=== PATIENT | male | born 1950 | race Caucasian/White ===

== ENCOUNTER 2016-09-23 17:13 | Emergency (ER) | payer OTHER ==
[~2016-09-23] VITALS: Ht 170.2 cm; Wt 112.8 kg
[~2016-09-23 17:13] MED LIST: BENAZEPRIL HCL10 MG PO; BENAZEPRIL HCL20 MG PO; BENAZEPRIL HCL40 MG PO; CARDIZEM CD,CA180 MG PO; CARDIZEM CD120 MG PO; CARDURA4 MG PO; CARDURA8 MG PO; CELEBREX200 MG PO; ELIQUIS5 MG PO; EPLERENONE50 MG PO; Ecotrin PO; FEOSOL325 MG PO; FUROSEMIDE40 MG PO; GLUCOPHAGE1000 MG PO; GLUCOPHAGE850 MG PO; KLOR-CON M2020 MEQ PO; KLOR-CON20 MEQ PO; LIPITOR40 MG PO; LUMIGAN 0.50 DROP/2. RIGHT EYE; LUMIGAN 0.50 DROP/22 BOTH EYES; MARTINIC1 EACH PO; METOPROLOL TAR100 MG PO; NAPROSYN500 MG PO; PREDNISONE20 MG PO; Senokot S,Pericolace PO; TOPROL XL100 MG PO; TRAMADOL HCL50 MG PO; ULTRAM50 MG PO; Vicodin,Norco 5/325 PO; ZYLOPRIM100 MG
[2016-09-23 18:34] LABS: ADD MIUA? YES; BILIRUBIN NEGATIVE; BLOOD LARGE; GLUCOSE (STRIP) NEGATIVE; KETONES NEGATIVE; LEUKOCYTES NEGATIVE; NITRITE NEGATIVE; PROTEIN (STRIP) 100; SPECIFIC GRAVITY 1.014 (1.000-1.030)
[2016-09-23 18:40] LABS: COLOR RED ((YELLOW))
[2016-09-23 19:23] LABS: MCH 31.9 PG (29.0-34.0); MCHC 33.9 G/DL (30.0-36.0); MCV 93.8 FL (86-99); MEAN PLAT.VOLUME 10.7 uM^3 (9.0-12.4); PLATELET COUNT 164 K/uL (156-360); RBC DIS.WIDTH-CV 14.5 % (11.8-14.6); RBC DIS.WIDTH-SD 49.5 % (39-53); RED BLOOD COUNT 4.05 M/uL (4.00-5.50); WHITE BLOOD COUNT 7.2 K/uL (4.1-10.2)
[2016-09-23 19:26] LABS: CHLORIDE 99 mEq/L (99-109); SODIUM 141 mEq/L (136-147)
[2016-09-23 19:27] LABS: BACTERIA NONE SEEN /HPF; CASTS NONE SEEN /LPF; CRYSTALS NONE SEEN; EPITHELIAL CELLS NONE SEEN /HPF; MUCUS NONE SEEN /LPF; RED BLOOD CELLS TNTC /HPF (0-5); UCUL ADDED? NO; WHITE BLOOD CELLS 0-5 /HPF (0-5)
[2016-09-23 19:28] LABS: GLUCOSE 176 mg/dL (70-99)
[2016-09-23 19:30] LABS: ANION GAP 13 MEQ/L (2-14); TOTAL BILIRUBIN 1.5 mg/dL (0.0-1.0)
[2016-09-23 19:32] LABS: ALKALINE PHOSPHATASE 45 IU/L (3-129); GFR ESTIMATE (CALCULATED) 54 mL/min/
[2016-09-23 19:33] LABS: UREA NITROGEN (BUN) 19 mg/dL (9-23)
[2016-09-23] MEDS ORDERED: FLOMAX0.4 MG PO (20:16)
[2016-09-23 21:00] VITALS: BP 139/85
== END 2016-09-23 21:58 | disposition home or self-care (01) ==
LOC: EME 17:13
PROVIDERS: Nurse Practitioner Family
DX: N20.0 Calculus of kidney (principal); R31.9 Hematuria, unspecified; Z87.442 Personal history of urinary calculi; Z79.01 Long term (current) use of anticoagulants; I25.10 Atherosclerotic heart disease of native coronary artery without angina pectoris; K57.30 Diverticulosis of large intestine without perforation or abscess without bleeding; N40.0 Benign prostatic hyperplasia without lower urinary tract symptoms; I10 Essential (primary) hypertension; E78.5 Hyperlipidemia, unspecified; E11.9 Type 2 diabetes mellitus without complications
CPT/HCPCS: 74176; 80053; 81003; 85027

== ENCOUNTER 2016-12-30 14:02 | Emergency (ER) | payer OTHER ==
[~2016-12-30] VITALS: Ht 170.2 cm; Wt 115.4 kg
[~2016-12-30 14:02] MED LIST changes: +FLOMAX0.4 MG PO
[2016-12-30 14:58] LABS: HEMATOCRIT 36.8 % (38.0-50.0); MCH 31.1 PG (29.0-34.0); MCHC 33.4 G/DL (30.0-36.0); MCV 93.2 FL (86-99); MEAN PLAT.VOLUME 11.2 uM^3 (9.0-12.4); PLATELET COUNT 165 K/uL (156-360); RBC DIS.WIDTH-CV 14.3 % (11.8-14.6); RBC DIS.WIDTH-SD 48.9 % (39-53); RED BLOOD COUNT 3.95 M/uL (4.00-5.50); WHITE BLOOD COUNT 8.4 K/uL (4.1-10.2)
[2016-12-30 15:08] LABS: CHLORIDE 99 mEq/L (99-109); POTASSIUM 4.1 mEq/L (3.7-5.4); SODIUM 141 mEq/L (136-147)
[2016-12-30 15:09] LABS: GLUCOSE 127 mg/dL (70-99)
[2016-12-30 15:11] LABS: ANION GAP 12 MEQ/L (2-14)
[2016-12-30 15:13] LABS: GFR ESTIMATE (CALCULATED) 50 mL/min/
[2016-12-30 15:14] LABS: UREA NITROGEN (BUN) 16 mg/dL (9-23)
[2016-12-30 15:21] LABS: TROP-I INTERPRETATION NEGATIVE; TROPONIN-I < 0.01 ng/mL (0.0-0.30)
[2016-12-30] MEDS ORDERED: ZITHROMAX Z-PA250 MG PO (18:34)
[2016-12-30 19:17] VITALS: BP 147/101
== END 2016-12-30 19:19 | disposition home or self-care (01) ==
LOC: EME 14:02
DX: I11.0 Hypertensive heart disease with heart failure (principal); I50.9 Heart failure, unspecified; J20.9 Acute bronchitis, unspecified; K21.9 Gastro-esophageal reflux disease without esophagitis; E78.5 Hyperlipidemia, unspecified; E11.9 Type 2 diabetes mellitus without complications; Z79.84 Long term (current) use of oral hypoglycemic drugs; Z79.01 Long term (current) use of anticoagulants; Z87.442 Personal history of urinary calculi
CPT/HCPCS: 71020; 71275; 80048; 83880; 84484; 85027; 93005; 99281; 99285; J1940; J7030

== ENCOUNTER 2017-06-02 00:21 | Emergency (ER) | payer OTHER ==
[~2017-06-02] VITALS: Ht 170.2 cm; Wt 116.0 kg
[~2017-06-02 00:21] MED LIST changes: +ZITHROMAX Z-PA250 MG PO
[2017-06-02 01:10] LABS: HEMATOCRIT 39.6 % (38.0-50.0); MCH 32.4 PG (29.0-34.0); MCHC 34.3 G/DL (30.0-36.0); MCV 94.3 FL (86-99); MEAN PLAT.VOLUME 11.5 uM^3 (9.0-12.4); PLATELET COUNT 169 K/uL (156-360); RBC DIS.WIDTH-CV 13.9 % (11.8-14.6); RBC DIS.WIDTH-SD 47.7 % (39-53)
[2017-06-02 01:20] LABS: CHLORIDE 97 mEq/L (99-109); POTASSIUM 3.7 mEq/L (3.7-5.4); SODIUM 144 mEq/L (136-147)
[2017-06-02 01:21] LABS: GLUCOSE 112 mg/dL (70-99)
[2017-06-02 01:23] LABS: ANION GAP 15 MEQ/L (2-14)
[2017-06-02 01:25] LABS: GFR ESTIMATE (CALCULATED) 40 mL/min/ (58.99-99999)
[2017-06-02 01:26] LABS: UREA NITROGEN (BUN) 22 mg/dL (9-23)
[2017-06-02 01:34] LABS: TROP-I INTERPRETATION NEGATIVE; TROPONIN-I < 0.01 ng/mL (0.0-0.30)
[2017-06-02 05:01] LABS: TROP-I INTERPRETATION NEGATIVE; TROPONIN-I < 0.01 ng/mL (0.0-0.30)
[2017-06-02] MEDS ORDERED: ZITHROMAX Z-PA250 MG PO (05:23)
[2017-06-02] MEDS ORDERED: PROVENTIL HFA6.7 GM IH (05:23)
[2017-06-02 06:16] VITALS: BP 136/86
== END 2017-06-02 06:17 | disposition home or self-care (01) ==
LOC: EME 00:21
PROVIDERS: Emergency Medicine
DX: J20.9 Acute bronchitis, unspecified (principal); N28.9 Disorder of kidney and ureter, unspecified; I48.91 Unspecified atrial fibrillation; Z86.79 Personal history of other diseases of the circulatory system; J02.9 Acute pharyngitis, unspecified; I10 Essential (primary) hypertension; E78.5 Hyperlipidemia, unspecified; E11.9 Type 2 diabetes mellitus without complications; Z79.84 Long term (current) use of oral hypoglycemic drugs; Z87.442 Personal history of urinary calculi
CPT/HCPCS: 71020; 80048; 83880; 84484; 85027; 87651 90; 93005; 94640; 99281; 99285

== ENCOUNTER 2017-09-20 20:20 | Emergency (ER) | payer OTHER ==
[~2017-09-20] VITALS: Ht 170.2 cm; Wt 113.6 kg
[~2017-09-20 20:20] MED LIST changes: +PROVENTIL HFA6.7 GM IH
[2017-09-20] MEDS ORDERED: CHERATUSSIN AC473 ML PO (23:35)
[2017-09-20] MEDS ORDERED: PREDNISONE10 M1 PO (23:35)
[2017-09-20] MEDS ORDERED: TESSALON PERLE100 MG PO (23:35)
[2017-09-20 23:49] VITALS: BP 152/93
== END 2017-09-20 23:51 | disposition home or self-care (01) ==
LOC: EME 20:20
DX: J20.9 Acute bronchitis, unspecified (principal); E11.9 Type 2 diabetes mellitus without complications; I10 Essential (primary) hypertension; K21.9 Gastro-esophageal reflux disease without esophagitis; E78.5 Hyperlipidemia, unspecified; M10.9 Gout, unspecified; F32.9 Major depressive disorder, single episode, unspecified; Z79.84 Long term (current) use of oral hypoglycemic drugs; Z87.442 Personal history of urinary calculi; Z86.79 Personal history of other diseases of the circulatory system; Z85.9 Personal history of malignant neoplasm, unspecified
CPT/HCPCS: 71046; 99281; 99283

== ENCOUNTER 2017-11-02 06:43 | Emergency (ER) | payer OTHER ==
[~2017-11-02] VITALS: Ht 170.2 cm; Wt 112.9 kg
[~2017-11-02 06:43] MED LIST changes: +CHERATUSSIN AC473 ML PO; +PREDNISONE10 M1 PO; +TESSALON PERLE100 MG PO
[2017-11-02 07:35] LABS: BASOPHIL (%) 0.7 % (0-1); BASOPHIL COUNT 0.1 K/uL (0-0.1); EOSINOPHIL COUNT 0.3 K/uL (0-0.3); HEMATOCRIT 40.3 % (38.0-50.0); IMMATURE GRANULOCYTE (%) 0.3 % (0.0-0.7); LYMPHOCYTE (%) 18.1 % (15-42); LYMPHOCYTE COUNT 1.8 K/uL (1.0-2.8); MCH 32.3 PG (29.0-34.0); MCHC 34.7 G/DL (30.0-36.0); MCV 93.1 FL (86-99); MONOCYTE (%) 7.1 % (3-12); MONOCYTE COUNT 0.7 K/uL (0-0.8); NEUTROPHIL (%) 70.8 % (45-76); PLATELET COUNT 161 K/uL (156-360); RBC DIS.WIDTH-CV 14.2 % (11.8-14.6); RBC DIS.WIDTH-SD 48.8 % (39-53); RED BLOOD COUNT 4.33 M/uL (4.00-5.50); WHITE BLOOD COUNT 9.9 K/uL (4.1-10.2)
[2017-11-02 07:52] LABS: CHLORIDE 99 mEq/L (99-109); POTASSIUM 4.3 mEq/L (3.7-5.4); SODIUM 141 mEq/L (136-147)
[2017-11-02 07:54] LABS: GLUCOSE 152 mg/dL (70-99)
[2017-11-02 07:58] LABS: CREATININE 1.6 mg/dL (0.6-1.3); GFR ESTIMATE (CALCULATED) 46 mL/min/ (58.99-99999)
[2017-11-02 07:59] LABS: UREA NITROGEN (BUN) 20 mg/dL (9-23)
[2017-11-02 08:12] LABS: APPEARANCE CLEAR ((CLEAR)); BILIRUBIN NEGATIVE; BLOOD LARGE; COLOR YELLOW ((YELLOW)); GLUCOSE (STRIP) NEGATIVE; KETONES NEGATIVE; LEUKOCYTES NEGATIVE; NITRITE NEGATIVE; PROTEIN (STRIP) 30; SPECIFIC GRAVITY 1.014 (1.000-1.030)
[2017-11-02 08:20] LABS: BACTERIA NONE SEEN /HPF; EPITHELIAL CELLS RARE /HPF; MUCUS TRACE /LPF; RED BLOOD CELLS TNTC /HPF (0-5); UCUL ADDED? YES; WHITE BLOOD CELLS 0-5 /HPF (0-5)
[2017-11-02] MEDS ORDERED: FLOMAX0.4 MG PO (09:39)
[2017-11-02] MEDS ORDERED: PERCOCET 5/31 TABLET PO (09:39)
[2017-11-02] MEDS ORDERED: ZOFRAN ODT4 MG PO (09:39)
[2017-11-02 10:35] VITALS: BP 146/89
== END 2017-11-02 10:38 | disposition home or self-care (01) ==
LOC: EME 06:43
PROVIDERS: Emergency Medicine
DX: N20.0 Calculus of kidney (principal); Z87.442 Personal history of urinary calculi; I11.0 Hypertensive heart disease with heart failure; I50.9 Heart failure, unspecified; K21.9 Gastro-esophageal reflux disease without esophagitis; E78.5 Hyperlipidemia, unspecified; E11.9 Type 2 diabetes mellitus without complications; Z79.84 Long term (current) use of oral hypoglycemic drugs; F32.9 Major depressive disorder, single episode, unspecified
CPT/HCPCS: 74176; 80048; 81003; 85025; 87086; 99281; 99285; J1885; J2405; J7030

== ENCOUNTER 2017-11-10 13:49 | Inpatient (IN) | payer OTHER ==
[~2017-11-10] VITALS: Ht 170.2 cm; Wt 117.1 kg
[~2017-11-10 13:49] MED LIST changes: +BACTRIM,SEPT1 TABLET PO; +GLUCOTROL5 MG PO; +PERCOCET 5/31 TABLET PO; +ZOFRAN ODT4 MG PO
[2017-11-10 14:40] VITALS: BP 142/90
[2017-11-10 23:30] VITALS: BP 143/95
[2017-11-11 05:35] LABS: HEMATOCRIT 32.8 % (38.0-50.0); MCH 31.1 PG (29.0-34.0); MCHC 33.2 G/DL (30.0-36.0); MCV 93.7 FL (86-99); PLATELET COUNT 167 K/uL (156-360); RBC DIS.WIDTH-CV 13.5 % (11.8-14.6); RBC DIS.WIDTH-SD 46.5 % (39-53); WHITE BLOOD COUNT 11.6 K/uL (4.1-10.2)
[2017-11-11 05:40] VITALS: BP 144/69
[2017-11-11 05:44] LABS: HEMOGLOBIN 10.9 G/DL (12.5-16.6)
[2017-11-11 05:53] LABS: ALBUMIN 3.3 G/DL (3.2-4.8); ALKALINE PHOSPHATASE 32 IU/L (3-129); ALT (GPT) 10 IU/L (3-49); AST (GOT) 12 IU/L (2-34); CHLORIDE 95 MEQ/L (99-109); CREATININE 1.7 MG/DL (0.6-1.3); GFR ESTIMATE (CALCULATED) 43 mL/min/ (58.99-99999); POTASSIUM 3.8 MEQ/L (3.7-5.4); SODIUM 138 MEQ/L (136-147); TOTAL BILIRUBIN 1.4 MG/DL (0.0-1.0); TOTAL PROTEIN 6.2 G/DL (6.4-8.3); UREA NITROGEN (BUN) 21 mg/dL (9-23)
[2017-11-11 05:58] LABS: GLUCOSE 161 mg/dL (70-99)
[2017-11-11 07:18] VITALS: BP 137/83
[2017-11-11 12:11] VITALS: BP 123/74
[2017-11-11 13:50] LABS: APPEARANCE TURBID ((CLEAR)); BLOOD LARGE; COLOR BLOODY ((YELLOW)); GLUCOSE (STRIP) NEGATIVE; KETONES NEGATIVE; PH, URINE 6.5 (5-8); PROTEIN (STRIP) 300
[2017-11-11 14:12] LABS: RED BLOOD CELLS TNTC /HPF (0-5); UCUL ADDED? YES
[2017-11-11 15:50] VITALS: BP 112/59
[2017-11-11 19:00] VITALS: BP 114/71
[2017-11-11 22:45] VITALS: BP 133/67
[2017-11-12 04:00] VITALS: BP 133/66
[2017-11-12 05:19] LABS: BASOPHIL (%) 0.3 % (0-1); EOSINOPHIL COUNT 0.2 K/uL (0-0.3); HEMATOCRIT 26.4 % (38.0-50.0); IMMATURE GRANULOCYTE (%) 0.2 % (0.0-0.7); LYMPHOCYTE (%) 15.5 % (15-42); LYMPHOCYTE COUNT 1.4 K/uL (1.0-2.8); MCH 32.1 PG (29.0-34.0); MCHC 34.1 G/DL (30.0-36.0); MCV 94.3 FL (86-99); MONOCYTE (%) 9.5 % (3-12); MONOCYTE COUNT 0.9 K/uL (0-0.8); NEUTROPHIL (%) 72.5 % (45-76); NEUTROPHIL COUNT 6.6 K/uL (1.8-6.4); PLATELET COUNT 149 K/uL (156-360); RBC DIS.WIDTH-CV 13.6 % (11.8-14.6); RBC DIS.WIDTH-SD 47.1 % (39-53); WHITE BLOOD COUNT 9.1 K/uL (4.1-10.2)
[2017-11-12 06:02] LABS: CHLORIDE 98 MEQ/L (99-109); CREATININE 1.9 MG/DL (0.6-1.3); GFR ESTIMATE (CALCULATED) 38 mL/min/ (58.99-99999); POTASSIUM 3.4 MEQ/L (3.7-5.4); SODIUM 137 MEQ/L (136-147); UREA NITROGEN (BUN) 22 mg/dL (9-23)
[2017-11-12 06:14] LABS: GLUCOSE 106 mg/dL (70-99)
[2017-11-12 08:27] VITALS: BP 136/78
[2017-11-12 11:27] VITALS: BP 136/78
[2017-11-12 15:28] VITALS: BP 118/69
[2017-11-12 18:05] LABS: HEMATOCRIT 27.1 % (38.0-50.0); HEMOGLOBIN 9.2 G/DL (12.5-16.6); MCV 94.4 FL (86-99)
[2017-11-12 19:00] VITALS: BP 112/66
[2017-11-12 23:00] VITALS: BP 125/82
[2017-11-13 04:30] VITALS: BP 127/84
[2017-11-13 05:16] LABS: BASOPHIL (%) 0.4 % (0-1); EOSINOPHIL (%) 3.2 % (0-5); EOSINOPHIL COUNT 0.3 K/uL (0-0.3); HEMATOCRIT 25.8 % (38.0-50.0); HEMOGLOBIN 8.6 G/DL (12.5-16.6); IMMATURE GRANULOCYTE (%) 0.4 % (0.0-0.7); LYMPHOCYTE (%) 14.2 % (15-42); LYMPHOCYTE COUNT 1.3 K/uL (1.0-2.8); MCH 31.4 PG (29.0-34.0); MCHC 33.3 G/DL (30.0-36.0); MCV 94.2 FL (86-99); MONOCYTE (%) 9.1 % (3-12); MONOCYTE COUNT 0.9 K/uL (0-0.8); NEUTROPHIL (%) 72.7 % (45-76); NEUTROPHIL COUNT 6.8 K/uL (1.8-6.4); PLATELET COUNT 168 K/uL (156-360); RBC DIS.WIDTH-CV 13.6 % (11.8-14.6); RBC DIS.WIDTH-SD 46.6 % (39-53); RED BLOOD COUNT 2.74 M/uL (4.00-5.50); WHITE BLOOD COUNT 9.4 K/uL (4.1-10.2)
[2017-11-13 05:50] LABS: CHLORIDE 98 MEQ/L (99-109); GFR ESTIMATE (CALCULATED) 36 mL/min/ (58.99-99999); GLUCOSE 110 mg/dL (70-99); POTASSIUM 3.8 MEQ/L (3.7-5.4); SODIUM 137 MEQ/L (136-147); UREA NITROGEN (BUN) 25 mg/dL (9-23)
[2017-11-13 07:23] VITALS: BP 132/90
[2017-11-13 11:26] VITALS: BP 107/68
[2017-11-13 17:12] VITALS: BP 102/60
[2017-11-13 19:00] VITALS: BP 118/72
[2017-11-13 22:30] VITALS: BP 112/74
[2017-11-14 04:30] VITALS: BP 125/81
[2017-11-14 05:58] LABS: BASOPHIL (%) 0.5 % (0-1); EOSINOPHIL (%) 3.5 % (0-5); EOSINOPHIL COUNT 0.3 K/uL (0-0.3); HEMATOCRIT 26.3 % (38.0-50.0); IMMATURE GRANULOCYTE (%) 0.4 % (0.0-0.7); LYMPHOCYTE (%) 13.7 % (15-42); LYMPHOCYTE COUNT 1.1 K/uL (1.0-2.8); MCH 31.8 PG (29.0-34.0); MCHC 34.2 G/DL (30.0-36.0); MCV 92.9 FL (86-99); MONOCYTE (%) 9.6 % (3-12); MONOCYTE COUNT 0.8 K/uL (0-0.8); NEUTROPHIL (%) 72.3 % (45-76); PLATELET COUNT 184 K/uL (156-360); RBC DIS.WIDTH-CV 13.4 % (11.8-14.6); RBC DIS.WIDTH-SD 45.8 % (39-53); RED BLOOD COUNT 2.83 M/uL (4.00-5.50); WHITE BLOOD COUNT 8.3 K/uL (4.1-10.2)
[2017-11-14 06:16] LABS: CHLORIDE 101 MEQ/L (99-109); CREATININE 1.7 MG/DL (0.6-1.3); GFR ESTIMATE (CALCULATED) 43 mL/min/ (58.99-99999); GLUCOSE 107 mg/dL (70-99); POTASSIUM 4.2 MEQ/L (3.7-5.4); SODIUM 139 MEQ/L (136-147); UREA NITROGEN (BUN) 24 mg/dL (9-23)
[2017-11-14 07:14] VITALS: BP 136/92
[2017-11-14 11:52] VITALS: BP 140/85
[2017-11-14 15:16] VITALS: BP 131/76
[2017-11-14 20:39] VITALS: BP 128/73
[2017-11-14 23:40] VITALS: BP 132/76
[2017-11-15 05:14] LABS: BASOPHIL (%) 0.7 % (0-1); BASOPHIL COUNT 0.1 K/uL (0-0.1); EOSINOPHIL (%) 5.3 % (0-5); EOSINOPHIL COUNT 0.4 K/uL (0-0.3); HEMATOCRIT 27.7 % (38.0-50.0); HEMOGLOBIN 9.3 G/DL (12.5-16.6); IMMATURE GRANULOCYTE (%) 0.2 % (0.0-0.7); LYMPHOCYTE (%) 21.8 % (15-42); LYMPHOCYTE COUNT 1.8 K/uL (1.0-2.8); MCH 31.4 PG (29.0-34.0); MCHC 33.6 G/DL (30.0-36.0); MCV 93.6 FL (86-99); MONOCYTE (%) 9.5 % (3-12); MONOCYTE COUNT 0.8 K/uL (0-0.8); NEUTROPHIL (%) 62.5 % (45-76); NEUTROPHIL COUNT 5.1 K/uL (1.8-6.4); PLATELET COUNT 211 K/uL (156-360); RBC DIS.WIDTH-CV 13.4 % (11.8-14.6); RBC DIS.WIDTH-SD 45.7 % (39-53); RED BLOOD COUNT 2.96 M/uL (4.00-5.50); WHITE BLOOD COUNT 8.2 K/uL (4.1-10.2)
[2017-11-15 05:46] LABS: CHLORIDE 100 MEQ/L (99-109); CREATININE 1.6 MG/DL (0.6-1.3); GFR ESTIMATE (CALCULATED) 46 mL/min/ (58.99-99999); GLUCOSE 100 mg/dL (70-99); POTASSIUM 4.2 MEQ/L (3.7-5.4); SODIUM 141 MEQ/L (136-147); UREA NITROGEN (BUN) 22 mg/dL (9-23)
[2017-11-15 05:56] VITALS: BP 143/90
[2017-11-15 07:20] VITALS: BP 148/91
[2017-11-15 10:55] LABS: SITE RR
[2017-11-15 10:56] LABS: COMMENTS - BLOOD GASES A+C+; PCO2 36 mm Hg (35-45); PO2 71 mm Hg (80-100)
[2017-11-15 10:57] LABS: BASE EXCESS 4.8 mEq/L (-3 to +3); BICARBONATE 28.1 mEq/L (22-26); CARBOXY HGB 1.7 % (0-5); O2 SATURATION (CALCULATED) 94 % (95-99)
[2017-11-15 11:03] LABS: HEMOGLOBIN A1c (GLYCOHEMOGLOB) 6.4 % (Below 5.7)
[2017-11-15 11:40] VITALS: BP 99/63
[2017-11-15 16:38] VITALS: BP 123/74
[2017-11-15 19:44] VITALS: BP 92/53
[2017-11-16 00:47] VITALS: BP 144/80
[2017-11-16 04:54] VITALS: BP 134/86
[2017-11-16 07:10] VITALS: BP 155/92
[2017-11-16 09:54] LABS: HEMATOCRIT 29.7 % (38.0-50.0); MCH 31.5 PG (29.0-34.0); MCHC 33.7 G/DL (30.0-36.0); MCV 93.7 FL (86-99); PLATELET COUNT 226 K/uL (156-360); RBC DIS.WIDTH-CV 13.4 % (11.8-14.6); RBC DIS.WIDTH-SD 46.6 % (39-53); RED BLOOD COUNT 3.17 M/uL (4.00-5.50); WHITE BLOOD COUNT 7.2 K/uL (4.1-10.2)
[2017-11-16 10:26] LABS: CHLORIDE 99 MEQ/L (99-109); CREATININE 1.6 MG/DL (0.6-1.3); GFR ESTIMATE (CALCULATED) 46 mL/min/ (58.99-99999); POTASSIUM 4.2 MEQ/L (3.7-5.4); SODIUM 137 MEQ/L (136-147); UREA NITROGEN (BUN) 25 mg/dL (9-23)
[2017-11-16 10:27] LABS: GLUCOSE 180 mg/dL (70-99)
[2017-11-16] MEDS ORDERED: ELIQUIS5 MG PO (10:53)
[2017-11-16] MEDS ORDERED: CARVEDILOL12.5 MG PO (10:53)
[2017-11-16] MEDS ORDERED: DIGOXIN250 MCG PO (10:53)
[2017-11-16] MEDS ORDERED: LISINOPRIL10 MG PO (10:53)
[2017-11-16 11:18] VITALS: BP 130/81
== END 2017-11-16 17:33 | disposition home health service (06) | DRG 315 ==
LOC: SDC 13:49 → ENRESERV 22:00 → 2SOUTH 22:02 → 4EAST 22:02 → ENRESERV 22:18 → 4EAST 23:01
PROVIDERS: Hospitalist; Internal Medicine; Student in an Organized Health Care Education/Training Program; Urology
DX: I97.89 Other postprocedural complications and disorders of the circulatory system, not elsewhere classified (principal); Y83.8 Other surgical procedures as the cause of abnormal reaction of the patient, or of later complication, without mention of misadventure at the time of the procedure; I48.2 Chronic atrial fibrillation; N99.89 Other postprocedural complications and disorders of genitourinary system; N40.1 Benign prostatic hyperplasia with lower urinary tract symptoms; R33.8 Other retention of urine; R31.0 Gross hematuria; D62 Acute posthemorrhagic anemia; N17.9 Acute kidney failure, unspecified; N13.2 Hydronephrosis with renal and ureteral calculous obstruction; N47.1 Phimosis; I10 Essential (primary) hypertension; I42.0 Dilated cardiomyopathy; I27.20 Pulmonary hypertension, unspecified; I36.1 Nonrheumatic tricuspid (valve) insufficiency; M10.9 Gout, unspecified; E11.9 Type 2 diabetes mellitus without complications; K21.9 Gastro-esophageal reflux disease without esophagitis; E78.5 Hyperlipidemia, unspecified; E78.00 Pure hypercholesterolemia, unspecified; Z96.652 Presence of left artificial knee joint; Z88.2 Allergy status to sulfonamides; Z79.01 Long term (current) use of anticoagulants; Z87.891 Personal history of nicotine dependence
CPT/HCPCS: 36415; 36600; 74420; 80048; 80053; 81003; 82803; 82948; 83036; 85014; 85018; 85025; 85027; 87086; 93005; 93306; 99202; C1758; C1769; C2625; J0690; J1170; J1815; J2405; J3010; J7030; J7040; J7120

== ENCOUNTER 2017-11-18 14:48 | Emergency (ER) | payer OTHER ==
[~2017-11-18] VITALS: Ht 170.2 cm; Wt 111.3 kg
[~2017-11-18 14:48] MED LIST changes: +CARVEDILOL12.5 MG PO; +DIGOXIN250 MCG PO; +LISINOPRIL10 MG PO
[2017-11-18 15:25] LABS: HEMATOCRIT 30.7 % (38.0-50.0); HEMOGLOBIN 10.6 G/DL (12.5-16.6); MCH 32.3 PG (29.0-34.0); MCHC 34.5 G/DL (30.0-36.0); MCV 93.6 FL (86-99); RBC DIS.WIDTH-CV 13.4 % (11.8-14.6); RBC DIS.WIDTH-SD 46.2 % (39-53); RED BLOOD COUNT 3.28 M/uL (4.00-5.50); WHITE BLOOD COUNT 7.9 K/uL (4.1-10.2)
[2017-11-18 15:31] LABS: PLATELET COUNT 298 K/uL (156-360)
[2017-11-18 15:33] LABS: ALBUMIN 3.4 g/dL (3.2-4.8); CHLORIDE 101 mEq/L (99-109); POTASSIUM 4.2 mEq/L (3.7-5.4); SODIUM 137 mEq/L (136-147)
[2017-11-18 15:36] LABS: GLUCOSE 146 mg/dL (70-99)
[2017-11-18 15:38] LABS: TOTAL BILIRUBIN 0.6 mg/dL (0.0-1.0)
[2017-11-18 15:39] LABS: ALKALINE PHOSPHATASE 68 IU/L (3-129); CREATININE 1.9 mg/dL (0.6-1.3); GFR ESTIMATE (CALCULATED) 38 mL/min/ (58.99-99999)
[2017-11-18 15:40] LABS: UREA NITROGEN (BUN) 24 mg/dL (9-23)
[2017-11-18 15:41] LABS: AST (GOT) 41 IU/L (2-34)
[2017-11-18 15:42] LABS: ALT (GPT) 43 IU/L (3-49)
[2017-11-18 15:42] LABS: APPEARANCE CLOUDY ((CLEAR)); BILIRUBIN NEGATIVE; BLOOD LARGE; COLOR YELLOW ((YELLOW)); GLUCOSE (STRIP) NEGATIVE; KETONES NEGATIVE; LEUKOCYTES LARGE; NITRITE NEGATIVE; PROTEIN (STRIP) 100; SPECIFIC GRAVITY 1.013 (1.000-1.030)
[2017-11-18 16:01] LABS: EPITHELIAL CELLS 1+ /HPF; MUCUS NONE SEEN /LPF; RED BLOOD CELLS 20-30 /HPF (0-5); WHITE BLOOD CELLS 40-50 /HPF (0-5)
[2017-11-18 16:02] LABS: BACTERIA RARE /HPF; UCUL ADDED? YES
[2017-11-18 18:31] VITALS: BP 128/76
== END 2017-11-18 18:32 | disposition home or self-care (01) ==
LOC: EME 14:48
PROVIDERS: Physician Assistant Medical
DX: R31.9 Hematuria, unspecified (principal); K21.9 Gastro-esophageal reflux disease without esophagitis; I11.0 Hypertensive heart disease with heart failure; I50.9 Heart failure, unspecified; E78.5 Hyperlipidemia, unspecified; I73.9 Peripheral vascular disease, unspecified; Z87.442 Personal history of urinary calculi; Z88.8 Allergy status to other drugs, medicaments and biological substances
CPT/HCPCS: 74176; 80053; 81003; 85027; 87086; 99281; 99284